=== PATIENT | female | born 1990 ===

== ENCOUNTER 2024-05-15 10:46 | Outpatient (OUT) | payer BC, SELFPAY ==
--- NOTE | 2024-05-15 | XR_ITS ---
The [address] [address] Patient Name: VA CISNEROS MRN: [id number] date: 1990 Sex: F Assigned Patient Location: [facility] Current Patient Location: Accession/Order Number: [id number] Exam Date: 05/15/2024 10:54 Report Date: 05/16/2024 08:11 At the request of: TUCKER SIERRA Procedure: XR ankle LT min 3V PROCEDURE: XR ankle LT min 3V HISTORY: LEFT ANKLE PAIN COMPARISON: None. FINDINGS: BONES:Evidence of prior repair and hardware removal involving the distal fibula. Single screw extending from anterior to posterior within the distal tibia. Narrowing of the ankle joint space and small degenerative osteophytes along the anterior articular margin. SOFT TISSUES:Medial soft tissue swelling. EFFUSION:None visible. OTHER: Negative. XR/XR ankle LT min 3V IMPRESSION: 1. Sequela of prior trauma and hardware placement/removal. 2. Moderate or greater degenerative changes of the ankle joint. 3. Medial soft tissue swelling of uncertain etiology. Electronically authenticated by: CHRISTO REAGAN Date: 05/16/2024 08:11
== END 2024-05-15 10:47 | disposition home or self-care (01) ==
PROVIDERS: Visit Provider Podiatrist Foot & Ankle Surgery
DX: M25.572 Pain in left ankle and joints of left foot (principal); M25.472 Effusion, left ankle
CPT/HCPCS: 73610

== ENCOUNTER 2024-05-24 14:42 | Outpatient (OUT) | payer BC, SELFPAY ==
--- OUTSIDE RECORDS SUMMARY | 2024-05-24 14:44 | XMS_ITS | CCD ---
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 Name Role Phone YANICK ALICIA Admitting Unavailable YANICK ALICIA Attending Unavailable PELON PACE Primary Care Unavailable GABINO CARRERA Attending Unavailable PELON PACE Attending Unavailable Problems Problem Classification Problem Date Documented Da te Episodic/Chronic Fracture of lower limb (1 source) Displaced trimalleolar fracture of left lower leg, initial encounter for closed fracture; Translations: [Displaced trimalleolar fracture of left lower leg, initial encounter for closed fracture] Onset: 11-30-2018 Episodic Results Test Name Value Interpretation Reference Range Facility Physical Therapy Noteon 12-2 Physical Therapy Note [id number]#1.[address] [place] [address] Therapeutic Documentation on 04-22-2021 Therapeutic Documentation [id number]#1.[address] [place] [address] Coding Summaryon 01-08-2021 Coding Summary HTMLBase 64 RhqzckjyCYt9xDx+PGhlYW Q+SI1GGJCpK79poFRsnB3U E3lEKM6EOXRSIKCZQQ6KQX 9xkTN3REgaE7SkalGf LedipSKhUO16BGt9EGE4hG jkDBekhA2vfXYjN3d1RfEx KL17yQ22YDnfFRFtKkX7Yx ZpbjsgbWFy S6sjTaMpdIAvKqf+PHRhYm xlIHdpZHRoPScxMDAlJyBz bEtnZJ9bYc8lSVNlOZBuzN xhcHNlOiBj g2mdSHMqSCxfIF2bdGrcH6 BkmCE8EZRvo1r8Vr01gKX+ JRHaVVF0bOuhEMevg105Rg Fbv1rmUGE4 lFQeBSguMRX4U90ny9J9VJ VcOGVwDAC1uEJ7eJ7raBsh bbyqN1YlxLRjLzJ6SVA8lI WjfI1afGzw kyswvX3kDao+W27OTJ8ROK CUZJ2GLrz7X7PmBsdiiCI+ IN53ZINqFW68hJXbiMAhh3 jrgKm5DjAh JRLyRJJ4eTidQNkrm7HzDI VkM38fsYWcj7P8ZRJyyRkh mAYbIpMlbUC2jF2tURkqlj ygy8dyzste Krckf8swpr18kC83A77wQR inSETyFEB8QSYlGKPrrYdj yj1tjA3nYw1+WPlkc9xtv4 ucmAi9ZdSk FSDgcdMstWbjRQR6s5PkCp 53F9TulYtbo5JfYix7fg88 fMIfd0X6sEI7SLzcPRIpiT 0vEUspWdS7 KGKpRxQewQ12jJZaMFlxQm 5ltCayxSqfQG4hQYMjzpvj HWLwoE7eAXSwkJYizWpcNK 4wNTBpbjtm p168IrKpEIE8JRKxhBDfT0 KobA9zGbBjLENzVPFmJ4Pd hPBuRZgiE014TYqsGsT2UC HlwwBrJ5Fi OXZqpZqtEgY4o2U1Av4Rd8 OvqtciFSW2BPcvYSV1NlU8 HhEnItY7N3LbSrw4UWIqvL mdLQ4dM0Pv YVSflcpxvjigzEC0OLNhQN TdbS32sTKdCKqmDf9hp7L8 k397QVTmHYMhwC54Ni0coZ ogMTBwdCBU eO7gyhetg9oztxbyHqEySR FdKKv8IWk4EVYamLmcStUj UMI8DoI1PAK1yRQalH3lmO xhokirwQ4o Oyc+O51djP7nLJE1DXR6uu tnLDMzvsVyKH60DY67D3Dw PjwvdGFibGU+PGRpdiBzdH agUA3bHdGf t7iuf5TcAOvrX1OdRBOvJJ gcKwo2ONDsOAX4qPJ2cI4q USErBEgfa9G1yYC1H6Vszl Wavf8yz8ac MZCwERnaP87ljQXgy3J5IN QltMT4BRYghMjqCzGitC23 Oyc+CVTihCull6EpHxbha9 oug7jjbZp1 SxMkFXAvxqLiuMhiPMO8g3 ZhJc11Y30xGJkmKOTmPDXf GUVaMGDhkVxqqa0bvT9kKj 8+PGNvbCB3 cHJ2kS1dRGTkOaX2WFtjJ4 91UiLzxLRcKhnyl5etr3ob qJg6KdKpOYAbquEzlXanNB R2t4CfNv67 I97hAYmmRDFiTNSzQCJdVV SqpGeoik8drR2dQc0+PC9j i5rfbi32sV43lNB+PHRkIH V7gGneYYhv MJXxxH1dEYacMzD1UEMtQu SajQ00eXNsEVkbDn5wyXti sHbkKK3zOZQkrjwtr242Aa Uyh8jeJABb yPJdPNuhVGZ6D65wb1W0SM UwALMdIJF0gMJ6wX9aqAdz bjogbGVmdDsgdmVydGljYW szJYhjE305 IHRvcDsnPlBhdGllbnQgTm AjXNe3G0LtBhr9CROsqOuz FC3rfIPnIXxrGj9piGpkzJ tcAD4cFQMc lkwhe159XnUyo3klALOsnR DpRNfzRXD3V32zs6O2HJYn TPRoQRP5fIM3nV0bvUmssm ogbGVmdDsg lhAmbDlbUYezYJhtG911AN RvcDsnPkJpcnRoIERhdGU6 KX41UL78tSIac4W8uQP4K9 BhZGRpbmct bzjeoPX6MGOaRVFtcA27Ig 3rqFpgKw3eJCXzYPN4RJSx lYBdI3WlgP1fUsWyQQIvLT LtS6WjuGEy LSkpG198EQoiNsA1TAVjva KgO4AeHICiwBrmIiD0f8A5 Sc7XO4T4DW69GC88oOXae0 A8eRG9Z8Hh LXEjjbdihqujiUX1YSHtDM VmwC69Dt1rbTxeQp9uORKj KPX9LMFqbRDnI8CcbM5wOc AjMDAwMDAw F2ZukPToCTmcK690MRyiNm U7VEHnigExQ4BjYEXvlWkh MuX9u8S4Ft4ZBUi7NZ43VE 98mSPwq2C1 oQU1F4XvGJFtoazeveufrG J9RMYqUQXvqU74Ks3oeHvm Dh3qUPLbYTS7TZHtyVGvP6 UpkF3mZmRf EOUsKDMyT5GkhKPtOYlhQ1 03DLziRfJ4ZMMfwmPpA4Xx RPFvjIjvIjD2g4K8Jf3KHN YgQS65WEB3 cVB1FO08AI91L3DzQysxeJ FibGU+PHRhYmxlIHdpZHRo OOfoCXQoFsRmlWkjCJ2jTn 9yZGVyLWNv iJtvuUXlXoSlb1oqMWDhTO hrSR9pdMerS4WwwJS2ODNm z6u3Lb77D01wL8OapGU+PG SlqDF9aNU0 iQ8kBfHuOwK9PYroB521Pf KoxNSaDwomh6kif9xdgMn8 YnI9XJPenkZctWnzWFL9u2 FnZd68D15t IHdpZHRoPSIxNSUiIHZhbG uqus7odI8rNu4+PGNvbCB3 xFJ3wF6xOfMoRpD2IYouQ1 49InRvcCIv Faohi6tfw3lvyHu9OmQvJL GiofZukYdmCHZ7m5TbKq41 A0VzzTrjz9BbCkp2wy98oV Kdd6Z5jYP2 I6ZwHETerrnbnNQlnUbjFG 8tVMFykpcpKCSasQ8eSCPh V6m2DcMmAlV6WBceI9Lwfb T4LBSauCIu LYuxLJQ5N64mo8H1ZQZsTP GaYDV8rXQ5cT7ebKbuxmja bGVmdDsgdmVydGljYWwtYW kaS085VKLy cYogSDRxjT9aWYUtuJTlvV duDS2mULDhsoeqSiuLID1Q WOZTJYJTHEawL0GYQFX5J6 CuNcy8PTKn vBjaQQ4vxXVyMTfuZx4suE xbgQmyCF7mGYVucbnhAJNv qO2gLMYfeOVjvWrwES0yGN Mafermz453 SvZmOXT8QLWemPOxD3QizH 3gIxRoTULeXUUsS4PakHSg WIlxT719NKzyRzU4WSInah PeJ3CuJNUc gZbcQtG8b6P1Hx0gQz3yWO 4uGKahMI85HY00kBNcr5M9 nYV9R5LgYPUkuaeqahuhvR Y3RJQoVDMv nE42aHTtXKsqKw8xn4P6x7 87BIVuYRGafO78Qp0hrEyf ROMqlPLUwO7pnmlkm3ncut ogIzAwMDAw OLh3SPo5SIJlcNycCqEgVW N2ZxU8VRY0qYNtnC9lkFwm agtxwV9dKvz+MjkgWWVhcn D1C3LfNqn9 NYKyfGwxOE6uuDDkDBurHz 3rpMutlJzxZY6eMBDlkvam MMVipI3aZEYslKEmsYkwPH 4wNTBpbjtm h094MqArHIY8CNIorGAzI7 UbpB0cStMdRWQfNAMqX1Wt eAOeONgjU827YEtvCbJ7WD JlvvYuH4Ed MMPjfNyeHfB4t8I9Cp4BHZ 1TPEX4J2PcYpi4VJBhxAud GR8kuNGnGKfyHq9jeJmnlB xyGX1mVKJl mzlePMWbzU5xBQRlkJJpxR qgXQ6sSQPbmmrcn959CcGh FEF3SLWlqMMzU6QhbO4dLz AjMDAwMDAw V4OdiXQtZIbwK698OMvcDb L2YRVxmaSvB3KvFGWcsQbz RrQ9l1L4Iy3NCLE0nnGgmm spW9Z2wHP8 aWVudDwvdGQ+ST47mp14W6 VgFdtqWrj4KEChUVK4fJN7 lQ1oUIHoCRmsp7T0eZK4M1 MrybTxca4b x5dhVQXiGTdaX41luNTio1 B2NDWeuQR4RFZfdScbTfRa sM08Fsb+BTPymSieb4JkFl clw2zki1hy lVd5OoCiJFJpbeBlgUavIE J2g1YzVg49M29zIDoeAQFq ZUIaYULcUAFkoGczre4olA 9wIi8+PGNv aZG5pQM2iW8dMnHlXiR9SK llH594AqKdcYHsZryma8pg r4bgsZx4NxMtCXRrxsRvgV lkESO5t9Ni Cn92Z5DbqJtxn8SxUrd2oq 50bJLii3T4gFO2M6IvVCNt swjakOLnwJkxOU8sPRShmp liRFArbY1g UAOdS7z1ChJiFoU7JUqmM5 NkisT1SYTiqQRkFMRxyRSY nT7ivyxwu7jxuhqeXsOiKM OvGCg3DDu6 CDXthZjaNhQpQJP8GwS0BG Z4oZEffP0ixZiatotgmR6w Oyc+DIr5d6twjIYxCT3kqI Q9CI84XM63 nITmc5V9kQK6L0TaRQUxxa haamxzsIA5SUKzXMKyrH94 Gf3qdAnuZm0bWDVbHLK8PA BigBHdZ7Vy sS4xUhFbBCNjPGExC4DrqN FuFOivZ408SYkiJbZ7BMYg trQwF2MbXGCbeNfnFlS8c0 W2Re7YFC76 GI88ZH05vIMaw6T0oBN9K6 McISWfkhahxcvpzXU4BLAy NOUmgU32Gc2bgRzdAn2hDB KwFVJ7OUDh gWDpG3AdtI6zTrOoEELeRK IlR5RpxZVtINxoQ165TCvx JnK9IIAjevHgT7DgPKUwwC ynFoZ9m0M0 Ib4MXt94IV48WR99rFXto1 T5tEU2S3GsOKHweijnnihi sNJ0JMOmCEMcoB04Pj6etD qlFo3zSOYr AXF8XEDwuZYuP0CrbM0nBl JwOSZpJQFnK9XfoVQdQDyn C060NZgrTcL7POPmwzCvP1 FsLWFsaWdu KiC0c7X4Vi1PCBkzbvn8S8 RkPjwvdHI+JH44UFPyQW47 uEXblGCnn9stiYn0MiUtGY YfDRP4nNjj PSd (more content not included)... [facility] Provider Orderson 12-17-2020 Provider Orders [id number] [id number] [facility] OPERATIVE REPORTon 9 OPERATIVE REPORT [address] [address] OPERATIVE REPORT PATIENT NAME: VA HSIEH : 1990 MED REC NO: [id number] ROOM: ACCOUNT NO: [id number] ADMIT DATE: 11/30/2018 PROVIDER: Yanick Alicia DATE OF PROCEDURE: 11/30/2018 SURGEON: Dr. Yanick Alicia. ASSISTANTS: Dr. Sawyer Madrid PREOPERATIVE DIAGNOSIS: Displaced closed left trimalleolar ankle fracture with syndesmotic disruption. POSTOPERATIVE DIAGNOSIS: Displaced closed left trimalleolar ankle fracture with syndesmotic disruption. PROCEDURE PERFORMED: 1. Open reduction and internal fixation, trimalleolar left ankle fracture. 2. Left ankle fracture syndesmotic repair. COMPLICATIONS: None. SPECIMENS: None. ANESTHESIA: Regional with general. ESTIMATED BLOOD LOSS: Minimal. FLUIDS: Per Anesthesia records. TOURNIQUET TIME: 110 minutes. IMPLANTS: Synthes semitubular lateral fibular plate, appropriate size 3.5 mm cortical screws, Synthes 4.0 mm cannulated screws x4, and 3.5 mm hex head syndesmotic screws x2. INDICATIONS: The patient is a 28-year-old female who sustained an injury to her left ankle while roller skating on 11/25/2018. She sustained an injury. She went to [facility] where a closed reduction was performed. She was found to have a displaced trimalleolar ankle fracture including a high fibular fracture, displaced medial malleolar fracture, displaced and impacted posterior malleolus fracture with articular disruption. There is also gross instability of the syndesmosis. The patient was seen in the clinic. CT scan confirmed the above findings. After review of all the data, we reviewed the findings with the patient and discussed treatment for this ankle fracture. We discussed recommendation for open reduction and internal fixation of the trimalleolar fracture as well as syndesmotic repair. We discussed the risks, benefits, alternatives. Risks including, but not limited to bleeding, infection, future hardware removal, risk of anesthesia, nonunion, malunion, contusion, instability, stiffness in the ankle, development of posttraumatic arthritis secondary to the significant intraarticular displacement along the posterior malleolus, and chronic ankle pain. After discussion, the patient wishes to proceed and an informed consent was obtained. DESCRIPTION OF PROCEDURE: The patient was seen in the preoperative holding area. At that location, the operative site was signed by the operating surgeon. The risks, benefits, and alternatives of the surgery were again reviewed. Informed consent was ensured. The patient was seen by Anesthesia. She was then taken back for a regional block. The patient was successfully seen by Anesthesia. See their notes. She was then taken back to the operating room and placed in the supine position. General anesthesia was induced. The left lower extremity was prepped and draped in the usual sterile fashion. Time-out was performed and preoperative antibiotics were given. We began by evaluating the fracture where she has a displaced high fibular fracture, approximately 8 cm from the joint, displaced medial malleolar fracture, gross instability of the syndesmosis and a posterior comminuted malleolar fracture with impaction of the articular surface. At that point, the left lower extremity was elevated and exsanguinated. Tourniquet was placed at 250 mmHg, . We then began for a posterolateral approach to the ankle to address the high fibular fracture as well as the posterior malleolar fracture. Skin was incised, dissected through the subcutaneous fascia. Sural nerve protected. The fascia along the peroneus brevis was then opened. These were retracted laterally. We then proceeded down to where we could see the flexor hallucis longus. This was then gently peeled off the along the fibula followed by subperiosteal dissection of the posterior portion of the distal tibia in order to visualize the posterior malleolar fragments. After this was completed, we were able to see the displacement of the fracture. A small elevator was used and inserted ___ fracture to push down the articular impacted segments to get good congruity along the articular surface. Once this was deemed well reduced, we then proceeded with percutaneous anterior to posterior cannulated screws. A reduction clamp was placed anterior to posterior after making a small anterior incision and bluntly dissecting down to the level of the anterior tibial cortex. We then proceeded with percutaneous pinning of the posterior malleolus after an open reduction was performed using the guidewires for the cannulated screws. A small incision was made followed by blunt dissection to avoid injury to the tendons or neurovascular structures of the ankle. We then placed two parallel 4.0 mm pins across the distal tibia and directly into the posterior malleolus. These could be palpated into the posterior malleolus visually through the posterolateral approach. We then measured and placed the screws and excellent purchase was achieved in the bone. One could palpate posterolateral appropriate placements into the posterior malleolar fragment. Multiple plains were obtained to ensure appropriate placement of the hardware and excellent purchase. After this was completed, we then proceeded to the lateral malleolus where the peroneal tendons were now retracted posteriorly. They were visualized at the posterolateral aspect of the fibula. She has a comminuted fibular fracture with at least four separate fragments. After cleaning these fractures and elevating the periosteum for fracture reduction, we then used temporary reduction clamps to clamp the fracture. We then used two 2.7 mm lag screws to attach the major fracture fragments and obtained good compression fixation through the multiple fragments. Each was drilled with 2.0 followed by 2.7 drill in lagged fashion and excellent purchase was achieved and appropriate measuring. After these were placed, we were able to remove our clamps. We had excellent fixation of the fracture at this time. With that, we could now place semitubular plates along the posterolateral aspect of the fibula to bridge our fracture and also to obtain distal purchase for syndesmotic screw fixation. Each screw was drilled bicortically in place. We bridged over the fracture site now that length and rotational alignment had been restored and stabilized. Excellent purchase was achieved in the bone. Fracture was well reduced and stable. After this was completed, we then proceeded over to the medial side where I additionally appeared to have a good alignment without any further reduction. I had to along the anterior wall. There was some displacement, so a small medial incision was made. Skin incised followed by blunt dissection through the subcutaneous fascia. Fracture identified. Fragments were cleaned up and hematoma cleaned up. We were then able to anatomically align the medial malleolus via direct visualization as well as C-arm imaging . After this was done, the periosteum was elevated off of the bone end for a full visualization and alignment. We then used two guidewires for the 4.0 mm cannulated screws, placed in parallel fashion and slightly divergent from the AP, obtained excellent fixation and depression across the fracture and reviewed on multiple fluoroscopic images. At this point, all bony elements had been repaired. The posterior cruciate ligament had been stabilized via repair of the posterior malleolus. There was still some slight gave through the syndesmosis and I elected to proceed with syndesmotic repair and fixation using two 3.5 mm tricortical screws drilled parallel to the joint while holding the ankle in neutral alignment. These were then placed. Excellent compression was achieved. Final fluoroscopic images were obtained on multiple planes including AP, mortise, lateral, oblique, and stress views showing a stable construct with stable fracture repair and no continued instability throughout the ankle joint or the syndesmosis. Thorough irrigation of each of the wound sites were then completed followed by closure of the periosteum plate laterally. We then used nylon for the skin. Nylon was also used for the medial side and the anterior incision sites. The tourniquet had been released and hemostasis was well maintained. Sterile dressings were then applied. A well padded posterior short leg splint was then placed. The patient was awoken from anesthesia without difficulty and taken back to the recovery room in good condition. POSTOPERATIVE PLAN: The patient will be nonweightbearing to the left lower extremity, likely in 10 to 12 weeks. We will further discuss syndesmotic screw removal versus retention and the risks and benefits of each in future clinic visits. Prescription provided for Percocet and aspirin for DVT prophylaxis. Continue ice and elevation. YANICK ALICIA YOMAIRA/[id number]_I Doc#: [id number] Normal [facility] XR ANKLE LEFT (2 VIEWS)on XR ANKLE LEFT (2 VIEWS) EXAMINATION: XRAY VIEWS OF THE LEFT ANKLE 11/30/2018 3:20 pm COMPARISON: None. HISTORY: ORDERING SYSTEM PROVIDED HISTORY: Trimalleolar fx TECHNOLOGIST PROVIDED HISTORY: Trimalleolar fx FINDINGS: 202.4 seconds of fluoroscopic time and 6 fluoroscopic spot images of the left ankle are obtained in the OR during left ankle surgery. No radiologist present. IMPRESSION: Fluoroscopy utilized in the OR for ORIF of left ankle fractures. Interpreted by: Cathy Rock MD Signed by: Cathy Rock MD 11/30/18 Final result Normal [facility] Encounters Encounter Date Encounter Type Care Provider Facility Start: 11-08-2023 End: 11-09-2023 ambulatory GABINO CARRERA Not Available Start: 07-17-2023 End: 07-18-2023 ambulatory PELON PACE Not Available Start: 11-30-2018 End: 11-30-2018 Patient encounter procedure YANICK ALICIA [facility] Procedures Date Procedure Procedure Detail Performing Clinician Start: 11-30-2018 AMBULATE PATIENT YANICK ALICIA Start: 11-30-2018 ELEVATE EXTREMITY JANICE ALICIA Start: 11-30-2018 FULL CODE YANICK BURCIAGA Start: 11-30-2018 INITIATE OXYGEN THER APY PROTOCOL YANICK ALICIA Start: 11-30-2018 NON WEIGHT BEARING TERRYE RT ALICIA Start: 11-30-2018 TOBACCO CESSATION EDUCATION YANICK ALICIA Start: 11-30-2018 VITAL SIGNS YANICK MAYO INER Start: 11-30-2018 WOUND CARE YANICK MAYO INER Start: 11-30-2018 Radiologic examinati on ankle 2 views YANICK ALICIA Start: 11-30-2018 ADVANCE DIET TOLE RATED (NURSING COMMUNICATION) YANICK ALICIA Start: 11-30-2018 DISCHARGE PATIENT JANICE ALICIA Start: 11-30-2018 BEDREST YANICK BURCIAGA Start: 11-30-2018 INITIATE OXYGEN THER APY PROTOCOL YANICK ALICIA Start: 11-30-2018 NOTIFY PHYSICIAN (SPECIFY) YANICK ALICIA Start: 11-30-2018 NURSING COMMUNICATION Howard DESAI DEBORA Start: 11-30-2018 REMOVE IV YANICK BURCIAGA Start: 11-30-2018 VITAL SIGNS YANICK MAYO INER Start: 11-30-2018 INSERT PERIPHERAL IV RO KRISTA ALICIA Payers Date Payer Category Payer Unknown [id number] 2018 Unknown [id number] 1990 Unknown [id number] 1990 Unknown [id number] 1990 Unknown [id number] Medication management note 01-12-2021 Note Date & Type Note Facility 01-12-2021 Note [id number] [facility] Summary Purpose Family History No Family History Records FoundNo Family History Records FoundNo Family History Records Found Advance Directives No Advanced Directives Records FoundNo Advanced Directives Records FoundNo Advanced Directives Records Found Additional Source Comments INFORMATION SOURCE (unrecogn ized section and content) DATE CREATED AUTHOR 12/09/2018 [facility] DATE CREATED AUTHOR AUTHOR'S ORGANIZ ATION 07/30/2021 [facility] DATE CREATED AUTHOR AUTHOR'S ORGANIZ ATION 11/12/2023 [facility] FOR RECORDS PERTAINING TO PATIENTS WHO ARE OR HAVE BEEN ENROLLED IN A CHEMICAL DEPENDENCY/SUBSTANCEABUSE PROGRAM, SOME INFORMATION MAY BE OMITTED. This clinical summary was aggregated from multiple sources. Caution should be exercised in using it in the provision of clinical care. This summary normalizes information from multiple sources, and as a consequence, information in this document may materially change the coding, format and clinical context of patient data. In addition, data may be omitted in some cases. CLINICAL DECISIONS SHOULD BE BASED ON THE PRIMARY CLINICAL RECORDS. [facility] [employer] provides no warranty or guarantee of the accuracy or completeness of information in this document.
--- NOTE | 2024-05-24 14:45 | CT_ITS ---
The [address] [address] Patient Name: VA CISNEROS MRN: [id number] date: 1990 Sex: F Assigned Patient Location: CT Current Patient Location: Accession/Order Number: [id number] Exam Date: 05/24/2024 14:50 Report Date: 05/27/2024 11:14 At the request of: TUCKER SIERRA Procedure: CT ankle LT wo con EXAMINATION: CT ankle LT wo con HISTORY: Post Traumatic Degenerative Joint Disorder COMPARISON: No relevant comparison available. TECHNIQUE: Multi-planar CT images were created without IV contrast. Dose reduction techniques were achieved by using automated exposure control and/or adjustment of mA and/or kV according to patient size and/or use of iterative reconstruction technique. FINDINGS: BONES: No acute fracture or dislocation. Severe degenerative changes of the tibiotalar joint with [id number] articulation bony remodeling and subchondral cystic changes. Remote posterior malleolus fracture with internal fixation utilizing a single cannulated screw. Evidence of removed tibia and fibular hardware. Moderate degenerative changes with joint space narrowing marginal osteophyte formation SOFT TISSUES: Negative. No visible soft tissue swelling. EFFUSION: None visible. OTHER: Negative. CT/CT ankle LT wo con IMPRESSION: Degenerative changes with severe tibiotalar osteoarthritis Electronically authenticated by: JODIE BRITO Date: 05/27/2024 11:14
== END 2024-05-24 14:43 | disposition home or self-care (01) ==
LOC: CT 14:42
PROVIDERS: Visit Provider Podiatrist Foot & Ankle Surgery
DX: M19.172 Post-traumatic osteoarthritis, left ankle and foot (principal)
CPT/HCPCS: 73700